=== PATIENT | female | born 1950 | race Caucasian/White ===

== ENCOUNTER → 2016-11-25 | Outpatient (CLI) | payer OTHER ==
[~2016-11-25] MED LIST: AGMUNK; ATOR-22 PO; CHOL100027 PO; CLTP PO; FOLI1TAB7 PO; HYDR0.5T PO; LEVO75TA5 PO; LIFI5DRO OPB; LPTUNK; METH2.5T PO; MULT-506 PO; OMEG10007 PO; RSTOPS OP; SYNUNK
[2016-11-25 14:31] LABS: THYROID STIMULATING HORMONE 0.211 uIu/ml (0.300-4.500)
== END | disposition home or self-care (01) ==
LOC: C.LABBC 12:00
PROVIDERS: ATTEND Nurse Practitioner Family
DX: Z11.59 Encounter for screening for other viral diseases (principal); E03.9 Hypothyroidism, unspecified

== ENCOUNTER → 2017-01-04 | Outpatient (CLI) | payer OTHER ==
[2017-01-04 11:16] LABS: BASO % 1.3 %; BASO ABS # 0.06 K/uL (0-0.2); COMPLETE YES; HEMATOCRIT 40.5 % (37-47); IG% 0.4 %; LYMPH % 36.4 %; LYMPH ABS # 1.71 K/uL (1.2-3.4); MEAN CELL VOLUME 98.5 fL (80-100); MEAN CORPUSCULAR HEMOGLOBIN 33.3 pg (25-34); MEAN CORPUSCULAR HGB CONC 33.8 g/dl (32-36); MEAN PLATELET VOLUME 10.1 fL (7.4-10.4); MONO % 15.5 %; NEUT % 43.4 %; PLATELET COUNT 271 K/uL (130-400); RED BLOOD COUNT 4.11 M/uL (4.2-5.4)
[2017-01-04 11:23] LABS: ALT/SGPT 30 U/L (12-78); BLOOD UREA NITROGEN 15 mg/dl (7-18); CALCIUM 9.4 mg/dl (8.5-10.1); CARBON DIOXIDE 30 mmol/L (21-32); CHLORIDE 105 mmol/L (98-107); CREATININE 0.83 mg/dl (0.60-1.20); GLUCOSE 86 mg/dl (70-99); POTASSIUM 3.8 mmol/L (3.5-5.1); SODIUM 142 mmol/L (136-145)
[2017-01-04 11:26] LABS: ALB/GLOB RATIO 1.2 (0.9-2); ALKALINE PHOSPHATASE 62 U/L (45-117); AST/SGOT 19 U/L (15-37)
== END | disposition home or self-care (01) ==
LOC: C.LABBC 08:43
PROVIDERS: ATTEND Internal Medicine
DX: M35.00 Sjogren syndrome, unspecified (principal); M13.0 Polyarthritis, unspecified

== ENCOUNTER 2017-01-28 21:30 | Emergency (ER) | payer OTHER ==
[~2017-01-28] VITALS: Ht 154.9 cm; Wt 62.8 kg
[~2017-01-28 21:30] MED LIST changes: -ATOR-22 PO; -CHOL100027 PO; -FOLI1TAB7 PO; -LEVO75TA5 PO; -LIFI5DRO OPB; -METH2.5T PO
[2017-01-28 21:41] VITALS: TEMP 36.8; Ht 154.9 cm; Wt 62.8 kg
[2017-01-28] MEDS ORDERED: METH2.5T PO (23:02)
[2017-01-28] MEDS ORDERED: CHOL100027 PO (23:02)
[2017-01-28] MEDS ORDERED: FOLI1TAB7 PO (23:02)
[2017-01-28] MEDS ORDERED: LIFI5DRO OPB (23:02)
[2017-01-28] MEDS ORDERED: ATOR-22 PO (23:02)
[2017-01-28] MEDS ORDERED: LEVO75TA5 PO (23:02)
[2017-01-28 23:39] VITALS: BP 134/93; PULSE 80; O2SAT 94
--- NOTE | 2017-01-30 03:16 | EMERGENCY ROOM VISIT NOTE ---
ED Visit Note First contact with patient: 22:56 Chief Complaint: Anterior neck pain. History of Present Illness: Ms. Gotti is a 66-year-old white female who ambulates into the ED accompanied by her complaining of anterior neck pain. Patient reports approximately 12 hours ago shortly after waking from sleep she developed a soreness sensation over the anterior neck. The prominence of her discomfort is in the submandibular area bilaterally. She goes on to report that she ate breakfast and started working around the house and she did not notice her discomfort but when she sat down for dinner approximately 3 hours ago the discomfort returned. She rates her discomfort 3/10. Her pain is nonradiating. She has not identified any aggravating or alleviating factors related to the pain. She has not taken any medications for pain prior to arrival at the hospital. She denies any associated symptoms including fevers, chills, sweats, skin eruptions , skin color changes, recent trauma, voice changes, difficulty swallowing, neck pain/stiffness, cough, wheezing, shortness of breath, palpitations, orthopnea, dependent edema, previous clots, claudication, cramping, abdominal pain, nausea , vomiting, extremity weakness/numbness/tingling. Review of Systems: As noted above in history of present illness. All body systems were reviewed and found to be negative as noted above. Past Medical History: Luis E's thyroiditis, dyslipidemia. Current Medications: Folate, Lipitor, levothyroxine, vitamins, methotrexate, lifitegrast. Allergies to Medications: Sulfa. Social History: Patient is not employed; she lives with her and feels safe in her home environment; she denies tobacco use. Physical Examination: Vital Signs: Date Time Temp Pulse Resp B/P Pulse Ox O2 Delivery O2 Flow Rate FiO2 01/28/17 23:39 80 18 134/93 94 01/28/17 21:41 36.8 92 18 146/91 96 Room Air GENERAL: 66-year-old female in mild distress due to pain, nontoxic-appearing, afebrile and hemodynamically stable. NEUROLOGICAL: Awake, alert and oriented to person, place and time. Answering questions appropriately and following commands. Normal gait. Good hand eye coordination. No focal motor sensory deficits. SKIN: Warm, dry and pink. No soft tissue eruptions or trauma noted. HEENT: Atraumatic and normocephalic. PERRLA. Sclera white and conjunctiva pink. No drainage from naris. Oral cavity moist and pink. No intraoral trauma. No obvious dental decay. No signs of abscess. Airway is patent. Uvula is midline and no abscesses are seen. Pharynx is nonerythematous or edematous. Speech normal. No lymphadenopathy. No laryngeal tenderness. No carotid bruits. No thyroid enlargement or tenderness. Trachea midline. No jugular venous distention. BACK: No tenderness over the bony cervical and thoracic spine. No CVA tenderness. THORAX: Lungs sounds are clear to auscultation and equal bilaterally with symmetrical chest wall. No wheezing, rales or rhonchi. No crepitus, tenderness , subcutaneous air or deformities noted. HEART: Regular rate and rhythm. No gallops, rubs or murmurs are appreciated. ABDOMEN: Flat, soft and nontender. Positive bowel sounds in all quadrants. No guarding, rigidity or organomegaly. EXTREMITIES: Moves all extremities well on command and with purpose. All distal neurovascular statuses are intact and equal bilaterally. No calf tenderness or cords. ED Course: Patient is assessed as noted above. EKG: Was read by myself and reviewed with Dr. Myers; shows normal sinus rhythm with a ventricular rate of 73 bpm. Signs of left atrial enlargement. No acute ST changes indicating ischemia, injury or infarction. Patient was educated about tonight's findings and instructed on her treatment plan; she verbalizes understanding and agreement with this plan. Clinical Impression: Anterior neck pain. Decision-Making: Initially my differential diagnosis I considered lymphadenopathy, carotid bruit, dental abscess/infection, pharyngitis and other causes. Disposition: Patient discharged home in stable condition accompanied by her ; prior to departure she was reassessed and subjectively reported she was feeling the same. Plan: Patient was encouraged to alternate ibuprofen and acetaminophen as needed for pain/discomfort. Patient was encouraged to follow-up with primary care provider for recheck in 2- 3 days if no better. Patient was encouraged return ED for worsening pain, difficulty speaking, difficulty swallowing, fevers or any new/concerning symptoms.
== END 2017-01-28 23:39 | disposition home or self-care (01) ==
LOC: C.EDB 21:31 → C.EDD 23:39
DX: M54.2 Cervicalgia (principal); E78.5 Hyperlipidemia, unspecified; E06.3 Autoimmune thyroiditis; Z79.899 Other long term (current) drug therapy

== ENCOUNTER → 2017-04-16 | Outpatient (CLI) | payer OTHER ==
[~2017-04-16] MED LIST changes: -AGMUNK; +ATOR-22 PO; +CHOL100027 PO; -CLTP PO; +FOLI1TAB7 PO; -HYDR0.5T PO; +LEVO75TA5 PO; +LIFI5DRO OPB; -LPTUNK; +METH2.5T PO; -MULT-506 PO; -OMEG10007 PO; -RSTOPS OP; -SYNUNK
[2017-04-16 11:03] LABS: BASO % 0.9 %; BASO ABS # 0.04 K/uL (0-0.2); COMPLETE YES; EOS % 2.9 %; IG% 0.2 %; LYMPH % 46.9 %; MEAN CELL VOLUME 98.3 fL (80-100); MEAN CORPUSCULAR HEMOGLOBIN 31.7 pg (25-34); MEAN CORPUSCULAR HGB CONC 32.3 g/dl (32-36); MEAN PLATELET VOLUME 10.4 fL (7.4-10.4); MONO % 16.1 %; PLATELET COUNT 227 K/uL (130-400); RED BLOOD COUNT 4.07 M/uL (4.2-5.4); WHITE BLOOD COUNT 4.48 K/uL (4.8-10.8)
[2017-04-16 11:17] LABS: BLOOD UREA NITROGEN 16 mg/dl (7-18); BUN/CREATININE RATIO 18.4 (10-20); CALCIUM 8.6 mg/dl (8.5-10.1); CARBON DIOXIDE 28 mmol/L (21-32); CHLORIDE 108 mmol/L (98-107); CHOLESTEROL 177 mg/dl (0-200); CHOLESTEROL/HDL RATIO 2.7; CREATININE 0.87 mg/dl (0.60-1.20); GLUCOSE 86 mg/dl (70-99); HDL CHOLESTEROL 65 mg/dl; LDL CHOLESTEROL CALCULATED 86 mg/dl; POTASSIUM 3.8 mmol/L (3.5-5.1); SODIUM 144 mmol/L (136-145); TRIGLYCERIDES 131 mg/dl (0-150); VERY LOW DENSITY LIPOPROT CALC 26 mg/dl
[2017-04-16 11:23] LABS: THYROID STIMULATING HORMONE 0.522 uIu/ml (0.300-4.500)
== END | disposition home or self-care (01) ==
LOC: C.LABBC 08:12
PROVIDERS: ATTEND Nurse Practitioner Family
DX: E78.00 Pure hypercholesterolemia, unspecified (principal); E03.9 Hypothyroidism, unspecified; M13.0 Polyarthritis, unspecified; I73.00 Raynaud's syndrome without gangrene; E53.8 Deficiency of other specified B group vitamins

== ENCOUNTER → 2017-05-27 | Outpatient (CLI) | payer OTHER ==
--- NOTE | 2017-06-04 06:37 | CODING QUERY MEDICAL NECESSITY ---
SUPPORTING DIAGNOSIS NEEDED Eduardo DINH, A supporting diagnosis is required for the test/procedure performed on this patient in order for us to be reimbursed by the patient's insurance. Please provide a supporting diagnosis for the following test/procedure listed below next to the test name along with your signature. *If there is no additional diagnosis for this patient that would support the following test/procedure please document that below next to the test/procedure. Test(s)/Procedure(s) that require a supporting diagnosis: * ([id number]) VITAMIN D ASSAY DIAGNOSIS: DATE OF SERVICE: 05/27/17 Provider Signature: Date: Thank you Sajan Scott [facility] Information Management Once completed, please kindly fax back to [phone] For questions please call [phone]
== END | disposition home or self-care (01) ==
LOC: C.LABBC 15:10
PROVIDERS: ATTEND Nurse Practitioner
DX: R92.2 Inconclusive mammogram (principal); R20.2 Paresthesia of skin; M79.601 Pain in right arm; M79.602 Pain in left arm

== ENCOUNTER → 2017-06-03 | Outpatient (CLI) | payer OTHER ==
--- NOTE | 2017-06-03 11:14 | DIAGNOSTIC IMAGING REPORT ---
LEFT UPPER EXTREMITY VENOUS DOPPLER HISTORY: PARESTHESIA AND PAIN BILATERAL UPPER EXT COMPARISON STUDY: None. FINDINGS: The left internal jugular vein is patent. There is normal flow within the left subclavian vein. There is normal flow and compressibility within the left axillary, basilic, brachial, radial, ulnar, and visualized cephalic veins. IMPRESSION: No DVT within the left upper extremity. Electronically signed by: Jatinder Jonas M.D. 06/03/2017 11:13 AM Dictated Date/Time: 06/03/2017 11:12 AM
== END | disposition home or self-care (01) ==
LOC: C.ULTRBC 10:26
PROVIDERS: ATTEND Nurse Practitioner
DX: R20.9 Unspecified disturbances of skin sensation (principal); M79.601 Pain in right arm; M79.602 Pain in left arm

== ENCOUNTER → 2017-06-25 | Outpatient (CLI) | payer OTHER ==
[2017-06-25 13:51] LABS: C-REACTIVE PROTEIN < 0.29 mg/dl (0-0.29); MAGNESIUM 2.1 mg/dl (1.8-2.4)
[2017-06-25 13:58] LABS: LYME DISEASE AB IGG NEG (NEG)
[2017-06-25 13:59] LABS: LYME DISEASE AB IGM NEG (NEG)
== END | disposition home or self-care (01) ==
LOC: C.LABBC 10:05
PROVIDERS: ATTEND Nurse Practitioner Family
DX: R20.2 Paresthesia of skin (principal)

== ENCOUNTER → 2017-07-21 | Outpatient (CLI) | payer OTHER ==
--- NOTE | 2017-07-21 13:10 | MAMMOGRAPHY REPORT ---
BILATERAL DIGITAL SCREENING MAMMOGRAM WITH CAD: 07/21/2017 CLINICAL HISTORY: Routine screening. Patient has no complaints. TECHNIQUE: Bilateral CC and MLO views were obtained. Current study was also evaluated with a Compute r Aided Detection (CAD) system. COMPARISON: Comparison is made to exams dated: 07/19/2016 mammogram, 07/25/2014 ultrasound, 07/17/2015 mammogram, 07/25/2014 mammogram, 07/14/2014 mammogram, and 07/09/2013 mammogram - [facility] enter. BREAST COMPOSITION: The tissue of both breasts is almost entirely fatty. FINDINGS: There are numerous benign rim calcifications scattered in both breasts. No suspicious mass , architectural distortion or cluster of microcalcifications is seen. IMPRESSION: ACR BI-RADS CATEGORY 1: NEGATIVE There is no mammographic evidence of malignancy. A 1 year screening mammogram is recommended. The pa tient will receive written notification of the results. Approximately 10% of breast cancers are not detected with mammography. A negative mammographic report should not delay biopsy if a clinically suggestive mass is present. Yessenia Gomez M.D. ay/:07/21/2017 12:47:16 Security Police Officer: [place](R)(M), [facility] letter sent: Normal 1/2 BI-RADS Code: ACR BI-RADS Category 1: Negative
== END | disposition home or self-care (01) ==
LOC: C.MAMM 09:53
PROVIDERS: ATTEND Obstetrics & Gynecology
DX: Z12.31 Encounter for screening mammogram for malignant neoplasm of breast (principal)

== ENCOUNTER → 2017-08-12 | Outpatient (CLI) | payer OTHER ==
[2017-08-12 13:54] LABS: BASO % 0.7 %; BASO ABS # 0.04 K/uL (0-0.2); HEMATOCRIT 39.5 % (37-47); IG% 0.3 %; LYMPH % 20.2 %; LYMPH ABS # 1.24 K/uL (1.2-3.4); MEAN CORPUSCULAR HEMOGLOBIN 33.5 pg (25-34); MEAN CORPUSCULAR HGB CONC 34.2 g/dl (32-36); MEAN PLATELET VOLUME 10.3 fL (7.4-10.4); MONO % 7.8 %; PLATELET COUNT 243 K/uL (130-400); RED BLOOD COUNT 4.03 M/uL (4.2-5.4); WHITE BLOOD COUNT 6.14 K/uL (4.8-10.8)
[2017-08-12 14:16] LABS: BLOOD UREA NITROGEN 17 mg/dl (7-18); BUN/CREATININE RATIO 19.7 (10-20); CALCIUM 9.1 mg/dl (8.5-10.1); CARBON DIOXIDE 26 mmol/L (21-32); CHLORIDE 108 mmol/L (98-107); CREATININE 0.88 mg/dl (0.60-1.20); GLUCOSE 92 mg/dl (70-99); POTASSIUM 4.2 mmol/L (3.5-5.1); SODIUM 141 mmol/L (136-145)
[2017-08-12 14:18] LABS: ALB/GLOB RATIO 1.3 (0.9-2); ALKALINE PHOSPHATASE 57 U/L (45-117); ALT/SGPT 38 U/L (12-78); AST/SGOT 19 U/L (15-37)
[2017-08-12 15:18] LABS: COMPLETE YES
== END | disposition home or self-care (01) ==
LOC: C.LABBC 11:29
PROVIDERS: ATTEND Internal Medicine
DX: M35.01 Sjogren syndrome with keratoconjunctivitis (principal); Z79.899 Other long term (current) drug therapy; M13.0 Polyarthritis, unspecified

== ENCOUNTER → 2017-10-11 | Outpatient (CLI) | payer OTHER ==
[~2017-10-11] MED LIST changes: -FOLI1TAB7 PO; +FOLI1TAB8 PO
[2017-10-11 10:38] LABS: BASO ABS # 0.05 K/uL (0-0.2); COMPLETE YES; EOS % 2.6 %; HEMATOCRIT 41.3 % (37-47); IG% 0.4 %; LYMPH % 43.6 %; LYMPH ABS # 2.22 K/uL (1.2-3.4); MEAN CORPUSCULAR HEMOGLOBIN 33.3 pg (25-34); MEAN CORPUSCULAR HGB CONC 33.7 g/dl (32-36); MEAN PLATELET VOLUME 10.3 fL (7.4-10.4); MONO % 14.5 %; NEUT % 37.9 %; PLATELET COUNT 247 K/uL (130-400); RED BLOOD COUNT 4.17 M/uL (4.2-5.4); WHITE BLOOD COUNT 5.09 K/uL (4.8-10.8)
[2017-10-11 11:19] LABS: ALT/SGPT 34 U/L (12-78); AST/SGOT 16 U/L (15-37); BLOOD UREA NITROGEN 15 mg/dl (7-18); BUN/CREATININE RATIO 17.6 (10-20); CARBON DIOXIDE 29 mmol/L (21-32); CHLORIDE 106 mmol/L (98-107); CREATININE 0.88 mg/dl (0.60-1.20); GLUCOSE 84 mg/dl (70-99); POTASSIUM 3.5 mmol/L (3.5-5.1); SODIUM 140 mmol/L (136-145)
[2017-10-11 11:30] LABS: ALB/GLOB RATIO 1.2 (0.9-2); ALKALINE PHOSPHATASE 57 U/L (45-117); CHOLESTEROL 169 mg/dl (0-200); CHOLESTEROL/HDL RATIO 2.3; HDL CHOLESTEROL 75 mg/dl; LDL CHOLESTEROL CALCULATED 74 mg/dl; THYROID STIMULATING HORMONE 0.447 uIu/ml (0.300-4.500); TRIGLYCERIDES 99 mg/dl (0-150); VERY LOW DENSITY LIPOPROT CALC 20 mg/dl
== END | disposition home or self-care (01) ==
LOC: C.LABBC 08:16
PROVIDERS: ATTEND Nurse Practitioner Family
DX: E03.9 Hypothyroidism, unspecified (principal); E78.00 Pure hypercholesterolemia, unspecified; M13.0 Polyarthritis, unspecified; I73.00 Raynaud's syndrome without gangrene

== ENCOUNTER → 2017-11-01 | Outpatient (CLI) | payer OTHER ==
--- NOTE | 2017-11-01 11:28 | DIAGNOSTIC IMAGING REPORT ---
L-SPINE MIN 4 VIEWS ROUTINE CLINICAL HISTORY: 66 years-old Female presenting with HIP PAIN, bilateral pain for one year, no known injury. TECHNIQUE: Frontal, bilateral oblique, lateral, and coned in lateral views lumbar spine were obtained. COMPARISON: 01/31/2012. FINDINGS: Levoscoliotic curvature of the lumbar spine centered at L3. Evaluation of the lumbar spine on lateral view is limited by the presence of scoliosis. Vertebral bodies maintain normal heights and grossly normal alignment. Intervertebral disc height loss multiple levels may in part be projectional due to curvature. No gross evidence of osseous neural foraminal narrowing. Facet arthropathy suggested in the lower lumbar spine. No compression deformity. Moderate stool burden in the right colon. No gross pneumoperitoneum. Lung bases clear. IMPRESSION: 1. Evaluation of the spine by radiograph is limited due to scoliotic curvature. 2. Increased with levoscoliosis since the prior exam. 3. No gross evidence of acute osseous injury. Electronically signed by: Bhavin Holloway M.D. 11/01/2017 11:27 AM Dictated Date/Time: 11/01/2017 11:24 AM
== END | disposition home or self-care (01) ==
LOC: C.RADBC 11:01
PROVIDERS: ATTEND Nurse Practitioner Family
DX: M25.559 Pain in unspecified hip (principal)

== ENCOUNTER → 2017-11-05 | Outpatient (CLI) | payer OTHER ==
--- NOTE | 2017-11-05 13:01 | DIAGNOSTIC IMAGING REPORT ---
PELVIS/BILATERAL HIP 2 VIEWS HISTORY: 66 years-old Female HIP PAIN chronic bilateral hip pain without known injury or trauma COMPARISON: Pelvis and hip radiographs 03/06/2015 TECHNIQUE: AP view of the pelvis with 2 views of the bilateral hips FINDINGS: Intervertebral disc space narrowing with facet arthropathy noted within the imaged lower lumbar spine. No pelvic ring fracture identified. There are mild degenerative changes of the bilateral femoral acetabular joints. No acute fracture or subluxation identified. Vascular calcifications are seen. Calcifications of the pelvis suggest phleboliths. IMPRESSION: 1. No acute fracture or subluxation. 2. Mild degenerative changes of the bilateral hips. The above report was generated using voice recognition software. It may contain grammatical, syntax or spelling errors. Electronically signed by: Jorge Garg M.D. 11/05/2017 1:00 PM Dictated Date/Time: 11/05/2017 12:58 PM
== END | disposition home or self-care (01) ==
LOC: C.RADBC 12:36
PROVIDERS: ATTEND Nurse Practitioner Family
DX: M25.559 Pain in unspecified hip (principal)

== ENCOUNTER → 2017-11-27 | Outpatient (CLI) | payer OTHER | END | disposition home or self-care (01) | LOC: C.MAMM 08:05 | PROVIDERS: ATTEND Nurse Practitioner Family | DX: Z13.820 Encounter for screening for osteoporosis (principal); M85.852 Other specified disorders of bone density and structure, left thigh ==

== ENCOUNTER → 2017-12-20 | Outpatient (CLI) | payer OTHER ==
[2017-12-20 10:23] LABS: BASO % 0.9 %; BASO ABS # 0.05 K/uL (0-0.2); EOS % 2.2 %; EOS ABS # 0.13 K/uL (0-0.5); HEMATOCRIT 40.9 % (37-47); HEMOGLOBIN 13.8 g/dL (12.0-16.0); IG# 0.02 K/uL (0.00-0.02); LYMPH ABS # 2.22 K/uL (1.2-3.4); MEAN CORPUSCULAR HEMOGLOBIN 33.4 pg (25-34); MEAN CORPUSCULAR HGB CONC 33.7 g/dl (32-36); MEAN PLATELET VOLUME 10.4 fL (7.4-10.4); MONO % 14.9 %; MONO ABS # 0.87 K/uL (0.11-0.59); NEUT % 43.7 %; NEUT ABS # 2.55 K/uL (1.4-6.5); PLATELET COUNT 257 K/uL (130-400); RED CELL DISTRIBUTION WIDTH CV 13.7 % (11.5-14.5); RED CELL DISTRIBUTION WIDTH SD 49.1 fL (36.4-46.3); WHITE BLOOD COUNT 5.84 K/uL (4.8-10.8)
[2017-12-20 10:41] LABS: ALT/SGPT 31 U/L (12-78); AST/SGOT 16 U/L (15-37); BLOOD UREA NITROGEN 19 mg/dl (7-18); CALCIUM 9.2 mg/dl (8.5-10.1); CARBON DIOXIDE 27 mmol/L (21-32); CREATININE 0.88 mg/dl (0.60-1.20); GLUCOSE 83 mg/dl (70-99); POTASSIUM 3.9 mmol/L (3.5-5.1); SODIUM 144 mmol/L (136-145)
[2017-12-20 10:43] LABS: ALKALINE PHOSPHATASE 60 U/L (45-117); TOTAL PROTEIN 7.2 gm/dl (6.4-8.2)
== END | disposition home or self-care (01) ==
LOC: C.LAB1850 08:14
PROVIDERS: ATTEND Internal Medicine
DX: M13.0 Polyarthritis, unspecified (principal); Z79.899 Other long term (current) drug therapy

== ENCOUNTER 2025-07-08 08:33 | Inpatient (IN) ==
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
--- NOTE | 2025-07-08 09:21 | XRay Report ---
XR chest 1V portable CLINICAL HISTORY: ams COMPARISON STUDY: 08/26/2021 FINDINGS: Single view portable chest is unchanged demonstrating no acute cardiopulmonary process. No airspace opacity or pleural effusion. The heart and pulmonary vascularity are unremarkable. IMPRESSION: Negative portable chest ACT 112: Negative or not required by law. Electronically signed by: Anita Mitchell M.D. 07/08/2025 9:19 AM
[2025-07-08 09:27] LABS: Appearance Urine Clear (Clear); Glucose Urine UA Negative (Negative)
[2025-07-08] MEDS: SODIUM CHLORIDE 0.9% 500 ML IV SCH (09:33)
[2025-07-08 09:45] LABS: Hematocrit (blood only) 40.3 % (37.0-47.0); Hemoglobin 13.7 g/dl (12.0-16.0); Immature Granulocytes # (auto) 0.04 K/uL (0.01-0.20); Immature Granulocytes % (auto) 0.8 %; Mean Corpuscular Hemoglobin 30.9 pg (25.0-34.0); Mean Corpuscular Volume 91.0 fL (80.0-100.0); Platelet Count 273 K/uL (130-400); RDW Standard Deviation 43.3 fL (36.4-46.3); Red Blood Count 4.43 M/uL (4.20-5.40); White Blood Count 5.10 K/ul (4.8-10.8)
--- NOTE | 2025-07-08 09:50 | CT Scan Report ---
CT head/brain wo con CLINICAL HISTORY: ams. TECHNIQUE: Multiple axial CT images of the head were obtained without contrast. A dose lowering tech nique was utilized adhering to the principles of ALARA. CT DOSE: 625.8 mGy.cm COMPARISON: 08/20/2024 FINDINGS: CT findings are stable. There is no intra-axial or extra-axial fluid collection, hemorrhage , or mass. Global atrophy and presumptive small vessel insufficiency changes are redemonstrated. Ther e is no midline shift. The calvarium is intact. IMPRESSION: Stable exam; no acute findings. ACT 112: Negative or not required by law. The above report was generated using voice recognition software. It may contain grammatical, syntax o r spelling errors. Electronically signed by: Anita Mitchell M.D. 07/08/2025 9:47 AM
[2025-07-08 10:02] LABS: Alanine Aminotransferase 10.0 U/L (7-52); Albumin Globulin Ratio 1.5 (0.9-2); Alkaline Phosphatase 41.0 U/L (34-104); Anion Gap 7.0 (3-11); Bilirubin,Total 0.7 mg/dl (0.2-1.0); Blood Urea Nitrogen 24.0 mg/dl (6-23); Calcium 9.9 mg/dl (8.6-10.3); Carbon Dioxide 25.0 mmol/L (21-32); Chloride 107.0 mmol/L (98-107); Creatine Kinase 121.0 U/L (26-192); Creatinine Clr Calc Pharmacy 34.0 ml/min; Globulin 2.9 gm/dl (2.5-4.0); Glucose 92.0 mg/dl (70-99(Fasting)); Magnesium 2.2 mg/dl (1.7-2.4); Potassium 4.0 mmol/L (3.5-5.1); Sodium 139.0 mmol/L (136-145); Total Protein 7.2 gm/dl (6.0-8.3)
[2025-07-08 10:17] LABS: Thyroid Stimulating Hormone 3.646 uIu/ml (0.300-4.500)
--- NOTE | 2025-07-08 11:54 | History & Physical Report ---
Date of Service July 08, 2025 Assessment & Plan (1) Mixed dementia: (2) Hypothyroidism: (3) Sjogrens syndrome: Plan 74 y/o woman with longstanding mixed dementia, seronegative arthritis and Sjogren's on low dose prednisone, who was brought in by her with progressive confusion and episodes of agitation / combativeness. # AMS - slow progression consistent with natural history of Alzheimer's dementia, rather than acute issue -Thorough ED workup negative for acute issues as detailed above: CBC/CMP, trop, TSH, COVID, UA, head CT, CXR, EKG all unremarkable/negative. Afebrile, not tachycardic, not hypoxic, mildly hypertensive -possible mild dehydration and given 1L NS in ED -check B12 -medication side effects (namenda, rivastigmine) which could be aggravating the situation - hold these -probable depression and anxiety - see below # Alzheimer's dementia previous (fairly remote) neuropsychological evaluation had suggested a mixed dementia, and past MRI of the brain with chronic small vessel disease and bilateral hippocampal atrophy. Reviewed previous neurology clinic notes including Dr. Callahan's last note - he felt more of an Alzheimer's picture and that fits with the progressive decline At baseline incontinence bowel/bladder, cannot complete ADLs except can dress self 50% of the time, increasing behavioral problems making it difficult for her to care for her -on rivastigmine patch and namenda as outpatient - probably stop because risk of side effects exceeds benefit at this point -olanzapine PRN if needed for significant agitation -discussed natural history of dementia with her # Mood disorder - based on 's description she probably has depression and possibly anxiety which can contribute to cognitive decline and behavioral problems -start citalopram 10 mg daily with goal of 20 mg daily -QTC is not prolonged # hypothyroidism - TSH normal, continue levothyroxine # Sjogren's and seronegative arthritis -continue low dose prednisone 5 mg daily DVT ppx- enoxaparin Dispo- probably needs placement unless big improvement with above medication changes, consult care coord I spoke with her by phone today. He does not know her wishes regarding code status. He does not know what he would want. Full code at this time and deserves further discussion History of Present Illness Chief Complaint: Worsening mental status and agitation Primary Care Provider: Jeff Munoz, III, TELEHEALTH CASE MANAGER 74 y/o with longstanding mixed dementia (onset prior to 2020), seronegative arthritis and Sjogren's on low dose prednisone, who was brought in by her with increasing confusion, combativeness. She can not provide any history because of severe dementia. History from ED physician and from her , by telephone, which was somewhat limited by soft speech and static on telephone line. She has had progressive slow decline over time, especially past weeks to months. She no longer cooks and he does not trust her with a knife because of inappropriate safety awareness. She is able to dress herself about 50% of the time. There have been increased episodes of agitation / combativeness recently where she will yell at him, argue, even throw objects at him. He relates a story where they were out for dinner and she had put all her rings in her mouth with tacos. She also wants to put two shoes on at the same time and agitated when he tries to redirect her. Recently they have been exploring moving to a [place] [facility] home and she has been very sad about that, saying she'd rather and crying. He feels she does have depressed mood. Followed by [facility] neurology, on rivastigmine patch and namenda Multiple ED visits recently with complaints about urinary incontinence. No UTIs. noted to be slow to respond verbally but not confused. They live in a house in [place] and have two adult children that live in [facility] and [place]. Allergies Allergy/AdvReac Type Severity Reaction Status Date / Time Sulfa (Sulfonamide Allergy Severe FACIAL Verified 06/22/25 10:57 Antibiotics) SWELLING vancomycin Allergy Unknown Unknown Verified 06/22/25 10:57 Uzjucmn-KGQ-TqN Reductase AdvReac Intermediate Confusion Verified 06/22/25 10:57 Inhibitor [Yuocmiq-Aop-Zod Reductase Inhibitor] Home Medications Medication Instructions Recorded Confirmed Type cholecalciferol (vitamin D3) 25 3,000 unit PO QDD 07/12/18 07/08/25 History mcg (1,000 unit) capsule (Vitamin D3) mecobalamin (vitamin B12) 1,000 1,000 mcg PO DAILY 09/19/23 07/08/25 History mcg chewable tablet rivastigmine 9.5 mg/24 hour 9.5 mg transdermal QAM 90 days #3 06/24/24 07/08/25 Rx transdermal patch Boxes prednisone 5 mg tablet 5 mg PO QAM #90 tabs 08/02/24 07/08/25 Rx fenofibrate 150 mg capsule 150 mg PO QAM #90 caps 08/03/24 07/08/25 Rx memantine 10 mg tablet 10 mg PO BID 90 days #180 tabs 03/29/25 07/08/25 Rx terbinafine HCl 250 mg tablet 250 mg PO DAILY 12 weeks #84 tabs 04/20/25 07/08/25 Rx levothyroxine 50 mcg tablet 50 mcg PO DAILYBB 07/08/25 07/08/25 History omega 7-ahl-umh-fish oil 910 1 cap PO QDD 07/08/25 07/08/25 History mg-1,400 mg capsule ([place]-3 Fish Oil) Past Med/Surg History Problem List Dementia (Acute) Urinary incontinence (Chronic) Fecal incontinence (Chronic) Mixed dementia (Chronic) Pure hypercholesterolemia (Chronic) Raynauds phenomenon (Chronic) Hypothyroidism (Chronic) Rosacea Prediabetes (Chronic) Alzheimer's dementia (Chronic) Seronegative polyarthritis Sjogrens syndrome (Chronic) Medical History Osteoporosis Osteoarthritis Mild dementia Hyperlipidemia Hypothyroidism Surgical History S/P cataract surgery bilateral History of hammertoe correction History of colonoscopy History of wisdom tooth extraction History of tubal ligation Family History Aunt Breast cancer Mother Coronary heart disease Myocardial infarction Father Coronary heart disease Other No family history of adverse response to anesthesia Denies family history of Ovarian cancer Prostate cancer Colorectal cancer Social History Smoking Status: Never smoker Second Hand Exposure: No; Do You Dip or Chew Tobacco: No; Hx Alcohol Use: No Hx Substance Use: No Preferred Language: Maltese Communication Ability: Effective Visual Impairment: No Limitations Hearing Ability: Normal Full Stack Web Developer Required: No Beliefs That Will Affect Care: None marital status: Current Living Situation: Spouse current occupational status: retired How many Children do You have: 2 Feels Safe at Home: Yes Safety Concerns: Feels Safe At This Time Childhood Exposure to Second-Hand Smoke: Yes Diet: regular caffeine: Yes during the past year weight has: remained stable Dental Care, Regularly: Yes Physical Activity Frequency: 1-2 Times per Week Seatbelt Use: always Sunscreen Use: Yes Assistive Devices: Glasses Review of Systems 2 Review of Systems: Unobtainable due to cognitive status Physical Exam 2 Physical Exam: Last 24h vitals reviewed GEN: initially calm in ED sitting on stretcher but became much more activated during conversation though not frankly agitated. Frail appearing HEENT: pupils equal, sclerae anicteric, moist MM RESP: normal WOB, CTAB CV: reg no mrg ABD: soft/nt/nd +BT : no contreras SKIN: warm and dry, no generalized rashes NEURO: AOx person only. Cannot describe why she is here or where we are. continuous picking at Face symmetric, speech normal, moves 4 ext spontaneously and equally Results & Data Results & Data Vital Signs (Past 12 Hours) Vital Signs Temp Pulse Resp BP Pulse Ox O2 Del Method 07/08/25 10:34 164/81 H 07/08/25 10:18 58 L 19 100 Room Air 07/08/25 09:10 61 20 98 Room Air 07/08/25 09:03 73 21 96 Room Air 07/08/25 08:55 66 07/08/25 08:51 179/87 H 07/08/25 08:35 36.4 C L 68 20 155/81 H 99 Room Air Laboratory Results 07/08/25 09:25 07/08/25 09:25 LFT normal Tn <5 UA negative COVID negative TSH 3.6 CT head - no acute changes, generalized atrophy CXR - personally reviewed film which is clear EKG - personally reviewed EKG tracing - normal PG Care Time/CCT Total # of Minutes Spent Total Time Spent with Patient: Total time spent is greater than 50% in coordination of care (as documented) at patient's floor/unit and/or counseling patient: Coding Level of Care Code 90860 INT INP/OBS CARE 3/75MIN Diagnoses Mixed dementia G30.9; F01.50; F02.80 Acquired hypothyroidism E03.9 Hypothyroidism type: acquired Sjogren's syndrome, with unspecified organ involvement M35.00 Sjogren organ or system involvement: unspecified organ involvement (2) Hypothyroidism Hypothyroidism type: acquired Qualified Code(s): E03.9 - Hypothyroidism, unspecified (3) Sjogrens syndrome Sjogren organ or system involvement: unspecified organ involvement Qualified Code(s): M35.00 - Sjogren syndrome, unspecified
[2025-07-08] MEDS ORDERED: ACETAMINOPHEN 325 MG TAB PO PRN (15:28)
[2025-07-08] MEDS ORDERED: MAGNESIUM HYDROXIDE SUSP 30 ML UDC PO PRN (15:28)
[2025-07-08] MEDS ORDERED: ONDANSETRON INJ 2 MG/ML 2 ML VIAL IV PRN (15:28)
[2025-07-08] MEDS ORDERED: POLYETHYLENE (MIRALAX) 17 GM PACK PO PRN (15:28)
[2025-07-08] MEDS ORDERED: ALUMINUM/MAGNESIUM SUSP 30 ML UDC PO PRN (15:28)
[2025-07-08] MEDS: ENOXAPARIN INJ 40 MG/0.4 ML SYR SQ SCH (17:33)
--- NOTE | 2025-07-08 17:48 | Electrocardiogram Report ---
Test Reason : Blood Pressure : */* mmHG Vent. Rate : 61 BPM Atrial Rate : 61 BPM P-R Int : 202 ms QRS Dur : 82 ms QT Int : 446 ms P-R-T Axes : 91 7 32 degrees QTcB Int : 448 ms Normal sinus rhythm 1st degree AV block Normal ECG When compared with ECG of 19-May-2025 12:33, Nonspecific T wave abnormality now evident in Lateral leads Confirmed by Pramod Saldana ([id number]) on 07/08/2025 5:48:24 PM Referred By: REFERRED SELF Confirmed By: Pramod Saldana
[2025-07-08] MEDS: CHOLECALCIFEROL 25 MCG (1000 UNITS) TAB PO SCH (18:07)
[2025-07-08] MEDS: MELATONIN 3 MG TAB PO PRN (20:04)
[2025-07-09] MEDS: LEVOTHYROXINE SODIUM 50 MCG TABLET PO SCH (06:15)
[2025-07-09] MEDS: CYANOCOBALAMIN (B-12) 500 MCG TABLET PO SCH (08:32)
[2025-07-09] MEDS: FENOFIBRATE NANOCRYSTALLIZED 145 MG TABLET PO SCH (08:32)
--- NOTE | 2025-07-09 18:14 | Hospitalist Progress Note ---
Date of Service July 09, 2025 Assessment & Plan (1) Mixed dementia: (2) Hypothyroidism: (3) Sjogrens syndrome: Plan 74 y/o woman with longstanding mixed dementia, seronegative arthritis and Sjogren's on low dose prednisone, who was brought in by her with progressive confusion and episodes of agitation / combativeness. # AMS - slow progression consistent with natural history of Alzheimer's dementia, rather than acute issue -Thorough ED workup negative for acute issues as detailed above: CBC/CMP, trop, COVID, UA, head CT, CXR, EKG all unremarkable/negative. Afebrile, not tachycardic, not hypoxic, mildly hypertensive -possible mild dehydration and given 1L NS in ED -B12 >1000 and TSH wnl -medication side effects (namenda, rivastigmine) which could be aggravating the agitation/combativeness - hold these -probable depression and anxiety - see below # Alzheimer's dementia previous (fairly remote, prior to 2020) neuropsychological evaluation had suggested a mixed dementia, and past MRI of the brain with chronic small vessel disease and bilateral hippocampal atrophy. Reviewed previous neurology clinic notes including Dr. Callahan's last note - he felt more of an Alzheimer's picture and that fits with the progressive decline At baseline incontinence bowel/bladder, cannot complete ADLs except can dress self 50% of the time, increasing behavioral problems making it difficult for her to care for her -on rivastigmine patch and namenda as outpatient - probably stop because risk of side effects exceeds benefit at this point -olanzapine PRN if needed for significant agitation -discussed natural history of dementia with her , son # Mood disorder - based on 's description she probably has depression and possibly anxiety which can contribute to cognitive decline and behavioral problems -start citalopram 10 mg daily with goal of 20 mg daily, tolerating thus far -QTC is not prolonged # hypothyroidism - TSH normal, continue levothyroxine # Sjogren's and seronegative arthritis -continue low dose prednisone 5 mg daily DVT ppx- enoxaparin Dispo- reviewed care coord note she met with and son, exploring [facility] and other options for them Full code at this time and deserves further discussion Admission and Anticipated Discharge Date Admission Date: July 08, 2025 Subjective Has not been too agitated but keeps getting up and walking, walks steady though. Doing ok with family in the room Physical Exam Physical Exam: Last 24h vitals reviewed GEN: calm and pretty cooperative, got up and walked into when I was talking to her family outside HEENT: pupils equal, sclerae anicteric, moist MM RESP: normal WOB, CTAB CV: reg no mrg ABD: soft/nt/nd +BT : no contreras SKIN: warm and dry, no generalized rashes NEURO: AOx person and family only. Confused and extremely poor short term memory. Face symmetric, speech normal, moves 4 ext spontaneously and equally Results & Data Results & Data Vital Signs (Past 12 Hours) Vital Signs Temp Pulse Resp BP Pulse Ox O2 Del Method 07/09/25 14:37 36.7 C 96 H 18 139/78 97 Room Air 07/09/25 07:30 36.5 C 88 18 158/90 H 98 Room Air Laboratory Results B12 >1000 PG Care Time/CCT Total # of Minutes Spent Total Time Spent with Patient: Total time spent is greater than 50% in coordination of care (as documented) at patient's floor/unit and/or counseling patient: Coding Level of Care Code 16693 SUB INP/OBS CARE 2/35MIN Diagnoses Mixed dementia G30.9; F01.50; F02.80 Acquired hypothyroidism E03.9 Hypothyroidism type: acquired Sjogren's syndrome, with unspecified organ involvement M35.00 Sjogren organ or system involvement: unspecified organ involvement (2) Hypothyroidism Hypothyroidism type: acquired Qualified Code(s): E03.9 - Hypothyroidism, unspecified (3) Sjogrens syndrome Sjogren organ or system involvement: unspecified organ involvement Qualified Code(s): M35.00 - Sjogren syndrome, unspecified
--- NOTE | 2025-07-10 16:38 | Hospitalist Progress Note ---
Date of Service July 10, 2025 Assessment & Plan (1) Mixed dementia: (2) Hypothyroidism: (3) Sjogrens syndrome: Plan 74 y/o woman with longstanding mixed dementia, seronegative arthritis and Sjogren's on low dose prednisone, who was brought in by her with progressive confusion and episodes of agitation / combativeness. # AMS - slow progression consistent with natural history of Alzheimer's dementia, rather than acute issue -Thorough ED workup negative for acute issues as detailed above: CBC/CMP, trop, COVID, UA, head CT, CXR, EKG all unremarkable/negative. Afebrile, not tachycardic, not hypoxic, mildly hypertensive -possible mild dehydration and given 1L NS in ED -B12 >1000 and TSH wnl -medication side effects (namenda, rivastigmine) which could be aggravating the agitation/combativeness - hold these -probable depression and anxiety - see below # Alzheimer's dementia previous (fairly remote, prior to 2020) neuropsychological evaluation had suggested a mixed dementia, and past MRI of the brain with chronic small vessel disease and bilateral hippocampal atrophy. Reviewed previous neurology clinic notes including Dr. Callahan's last note - he felt more of an Alzheimer's picture and that fits with the progressive decline At baseline incontinence bowel/bladder, cannot complete ADLs except can dress self 50% of the time, increasing behavioral problems making it difficult for her to care for her -on rivastigmine patch and namenda as outpatient - probably stop because risk of side effects exceeds benefit at this point -olanzapine PRN if needed for significant agitation - responded well to 5 mg ODT last night. Monitor, may benefit from scheduled evening dose -discussed natural history of dementia with her , son # Mood disorder - based on 's description she probably has depression and possibly anxiety which can contribute to cognitive decline and behavioral problems -start citalopram 10 mg daily with goal of 20 mg daily, tolerating thus far -QTC is not prolonged # hypothyroidism - TSH normal, continue levothyroxine # Sjogren's and seronegative arthritis -continue low dose prednisone 5 mg daily DVT ppx- enoxaparin Dispo- reviewed care coord note she met with and son, exploring [facility] and other options for them I updated son Willis and her in the room today Full code at this time and deserves further discussion Admission and Anticipated Discharge Date Admission Date: July 08, 2025 Subjective She has no complaints, pleasantly confused History obtained from RN - agitation last night around 7pm responded well to olanzapine odt 5 mg and she slept well last night. Up for bfast and lunch today Physical Exam Physical Exam: Last 24h vitals reviewed GEN:calm and sitting on end of bed, in room exam unchanged today: HEENT: pupils equal, sclerae anicteric, moist MM RESP: normal WOB, CTAB CV: reg no mrg ABD: soft/nt/nd +BT : no contreras SKIN: warm and dry, no generalized rashes NEURO: AOx person and family only. Confused and extremely poor short term memory. Face symmetric, speech normal, moves 4 ext spontaneously and equally Results & Data Results & Data Vital Signs (Past 12 Hours) Vital Signs Temp Pulse Resp BP Pulse Ox O2 Del Method 07/10/25 14:21 36.6 C 80 18 125/81 96 Room Air 07/10/25 07:31 36.6 C 74 18 157/87 H 98 Room Air PG Care Time/CCT Total # of Minutes Spent Total Time Spent with Patient: Total time spent is greater than 50% in coordination of care (as documented) at patient's floor/unit and/or counseling patient: Coding Level of Care Code 15755 SUB INP/OBS CARE 2/35MIN Diagnoses Mixed dementia G30.9; F01.50; F02.80 Acquired hypothyroidism E03.9 Hypothyroidism type: acquired Sjogren's syndrome, with unspecified organ involvement M35.00 Sjogren organ or system involvement: unspecified organ involvement (2) Hypothyroidism Hypothyroidism type: acquired Qualified Code(s): E03.9 - Hypothyroidism, unspecified (3) Sjogrens syndrome Sjogren organ or system involvement: unspecified organ involvement Qualified Code(s): M35.00 - Sjogren syndrome, unspecified
[2025-07-11 07:33] VITALS: RESP 18
--- NOTE | 2025-07-11 17:16 | Hospitalist Progress Note ---
Date of Service July 11, 2025 Assessment & Plan (1) Mixed dementia: (2) Hypothyroidism: (3) Sjogrens syndrome: Plan 74 y/o woman with longstanding mixed dementia, seronegative arthritis and Sjogren's on low dose prednisone, who was brought in by her with progressive confusion and episodes of agitation / combativeness. # AMS - slow progression consistent with natural history of Alzheimer's dementia, rather than acute issue -Thorough ED workup negative for acute issues as detailed above: CBC/CMP, trop, COVID, UA, head CT, CXR, EKG all unremarkable/negative. Afebrile, not tachycardic, not hypoxic, mildly hypertensive -possible mild dehydration and given 1L NS in ED -B12 >1000 and TSH wnl -medication side effects (namenda, rivastigmine) which could be aggravating the agitation/combativeness - hold these -probable depression and anxiety - see below # Alzheimer's dementia previous (fairly remote, prior to 2020) neuropsychological evaluation had suggested a mixed dementia, and past MRI of the brain with chronic small vessel disease and bilateral hippocampal atrophy. Reviewed previous neurology clinic notes including Dr. Callahan's last note - he felt more of an Alzheimer's picture and that fits with the progressive decline At baseline incontinence bowel/bladder, cannot complete ADLs except can dress self 50% of the time, increasing behavioral problems making it difficult for her to care for her -on rivastigmine patch and namenda as outpatient - probably stop because risk of side effects exceeds benefit at this point -discussed natural history of dementia with her , son -ordered olanzapine 5 mg ODT HS scheduled - has been very effective for recurring pattern of evening agitation. May give early. Discussed risks:benefits with her son # Mood disorder - based on 's description she probably has depression and possibly anxiety which can contribute to cognitive decline and behavioral problems -start citalopram 10 mg daily with goal of 20 mg daily, tolerating thus far. Eval for dose increase in roughly 10 days -QTC is not prolonged # hypothyroidism - TSH normal, continue levothyroxine # Sjogren's and seronegative arthritis -continue low dose prednisone 5 mg daily DVT ppx- enoxaparin Discussed with RONN Olson dc to rehab at [facility] tomorrow then to [facility] I updated son Willis and her in the room 07/10, 07/11 Full code at this time and deserves further discussion Admission and Anticipated Discharge Date Admission Date: July 08, 2025 Subjective Overall doing quite well here Has been getting a bit agitated in the evenings, wanting to go home. Gets a dose of olanzapine ODT then sleeps well and no trouble rest of the night. Per family she is eating OK. Physical Exam Physical Exam: Last 24h vitals reviewed GEN:awake and sitting in bed, family in room exam unchanged 07/11: HEENT: pupils equal, sclerae anicteric, moist MM RESP: normal WOB, CTAB CV: reg no mrg ABD: soft/nt/nd +BT : no contreras SKIN: warm and dry, no generalized rashes NEURO: AOx person and family only. Confused and extremely poor short term memory. Face symmetric, speech normal, moves 4 ext spontaneously and equally. Calm no agitation Results & Data Results & Data Vital Signs (Past 12 Hours) Vital Signs Temp Pulse Resp BP Pulse Ox O2 Del Method 07/11/25 15:18 36.3 C L 70 18 165/85 H 100 Room Air 07/11/25 07:30 36.5 C 68 18 141/93 H 96 Room Air PG Care Time/CCT Total # of Minutes Spent Total Time Spent with Patient: Total time spent is greater than 50% in coordination of care (as documented) at patient's floor/unit and/or counseling patient: Coding Level of Care Code 73116 SUB INP/OBS CARE 2/35MIN Diagnoses Mixed dementia G30.9; F01.50; F02.80 Acquired hypothyroidism E03.9 Hypothyroidism type: acquired Sjogren's syndrome, with unspecified organ involvement M35.00 Sjogren organ or system involvement: unspecified organ involvement (2) Hypothyroidism Hypothyroidism type: acquired Qualified Code(s): E03.9 - Hypothyroidism, unspecified (3) Sjogrens syndrome Sjogren organ or system involvement: unspecified organ involvement Qualified Code(s): M35.00 - Sjogren syndrome, unspecified
[2025-07-11 19:40] VITALS: TEMP 97.7
--- NOTE | 2025-07-12 07:58 | Discharge Summary ---
Discharge Summary Date of Service July 12, 2025 Principal Dx & Hospital Course #1 = Principal Diagnosis (1) Mixed dementia: (2) Hypothyroidism: (3) Sjogrens syndrome: Plan 74 y/o woman with longstanding mixed dementia, seronegative arthritis and Sjogren's on low dose prednisone, who was brought in by her with progressive confusion and episodes of agitation / combativeness. # AMS - slow progression consistent with natural history of Alzheimer's dementia, rather than acute issue -Thorough ED workup negative for acute issues as detailed above: CBC/CMP, trop, COVID, UA, head CT, CXR, EKG all unremarkable/negative. Afebrile, not tachycardic, not hypoxic, mildly hypertensive -possible mild dehydration and given 1L NS in ED -B12 >1000 and TSH wnl -medication side effects (namenda, rivastigmine) which could be aggravating the agitation/combativeness - hold these -probable depression and anxiety - see below # Alzheimer's dementia previous (fairly remote, prior to 2020) neuropsychological evaluation had sug gested a mixed dementia, and past MRI of the brain with chronic small vessel disease and bilateral hippocampal atrophy. Reviewed previous neurology clinic notes including Dr. Callahan's last note - he felt more of an Alzheimer's picture and that fits with the progressive decline At baseline incontinence bowel/bladder, cannot complete ADLs except can dress self 50% of the time, increasing behavioral problems making it difficult for her to care for her -on rivastigmine patch and namenda as outpatient - stop because risk of side effects exceeds benefit at this point -discussed natural history of dementia with her , son -ordered olanzapine 5 mg ODT HS scheduled - has been very effective for recurring pattern of evening agitation. May give early. Discussed risks:benefits with her son. 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 Eval for dose increase in roughly 10 days -QTC is not prolonged # hypothyroidism - TSH normal, continue levothyroxine # Sjogren's and seronegative arthritis -continue low dose prednisone 5 mg daily dc to rehab at [facility] tomorrow then to [facility] I updated son Willis and her in the room 07/10, 07/11. 07/12 Full code at this time by conversation with her and deserves further discussion Notes For Next Care Provider Progression of dementia, behavioral disturbance Medication Changes From Visit Stopped rivastigmine, namenda Started citalopram - eval for dose increase in 2 weeks Started HS olanzapine for nightly agitation/combativeness - DC if possible once acclimated to new living situation Admission HPI Per Admitting Provider 74 y/o with longstanding mixed dementia (onset prior to 2020), seronegative arthritis and Sjogren's on low dose prednisone, who was brought in by her with increasing confusion, combativeness. She can not provide any history because of severe dementia. History from ED physician and from her , by telephone, which was somewhat limited by soft speech and static on telephone line. She has had progressive slow decline over time, especially past weeks to months. She no longer cooks and he does not trust her with a knife because of inappropriate safety awareness. She is able to dress herself about 50% of the time. There have been increased episodes of agitation / combativeness recently where she will yell at him, argue, even throw objects at him. He relates a story where they were out for dinner and she had put all her rings in her mouth with tacos. She also wants to put two shoes on at the same time and agitated when he tries to redirect her. Recently they have been exploring moving to a [facility]ci home and she has been very sad about that, saying she'd rather and crying. He feels she does have depressed mood. [place] [facility] [place], on rivastigmine patch and namenda Multiple ED visits recently with complaints about urinary incontinence. No UTIs. noted to be slow to respond verbally but not confused. They live in a house in [place] and have two adult children that live in [facility] and [place]. Discharge Exam Last 24h vitals reviewed GEN:awake and sitting in bed, family in room exam unchanged 07/12: HEENT: pupils equal, sclerae anicteric, moist MM RESP: normal WOB, CTAB CV: reg no mrg ABD: soft/nt/nd +BT : no contreras SKIN: warm and dry, no generalized rashes NEURO: AOx person and family only. Confused and extremely poor short term memory. Face symmetric, speech normal, moves 4 ext spontaneously and equally. Calm no agitation Discharge Plan Discharge Items Patient Disposition: Transfer Jail Fac Reason For Visit: CONFUSION/LETHARGY Discharge Diagnosis: Mixed dementia with behavioral disturbance Condition on Discharge: Fair Activity: Resume your previous activity Non-emergency contact: Primary Care Provider Call non-emergency contact if: you have any medication questions and your symptoms worsen Follow-up/Referrals: Jeff Munoz III, CRNP [Primary Care Provider] - Diet: Regular Addtl Attending Provider Instructions: Stopped rivastigmine patch and namenda because of limited benefit at this point and may have been aggravating agitation/combativeness. Behaviors possibly have improved off these meds. Has had pattern of agitation early evening (7-8 pm) and responds well to olanzapine 5 mg ODT currently scheduled around that time. Once acclilmated in new setting, try to discontinue because of risk:benefit No other acute issues such as infection identified PT and OT evaluate and treat It was a pleasure taking care of Ema in the hospital, Tiffany Becerra MD Pending Studies at Discharge: No Stand-Alone Forms: My [facility] Skilled Items Patient informed of condition?: Yes DNR: No Discharge Level of Care: Skilled Communicable Disease: No Discharge Prognosis: Stable Lines: None Urinary Catheter: No Medications and DC Order Prescriptions: New acetaminophen 325 mg Tablet 650 mg PO Q4H PRNQty: 0 0RF polyethylene glycol 3350 [Miralax] 17 gram Powder In Packet 17 g PO DAILY PRNQty: 0 0RF olanzapine 5 mg Tablet,Disintegrating 5 mg PO Q24H Qty: 0 0RF Continued prednisone 5 mg tablet 5 mg PO QAM Qty: 90 3RF fenofibrate 150 mg capsule 150 mg PO QAM Qty: 90 3RF mecobalamin (vitamin B12) 1,000 mcg tablet,chewable 1,000 mcg PO DAILY Patient Comments: Unable to verify OTC meds at this date/time. 07/08/25 cholecalciferol (vitamin D3) [Vitamin D3] 1,000 unit Capsule 3,000 unit PO QDD Patient Comments: Unable to verify OTC meds at this date/time. 07/08/25 Nettie-3 Fish Oil 910-1,400 mg Capsule 1 cap PO QDD levothyroxine 50 mcg tablet 50 mcg PO DAILYBB Discontinued rivastigmine 9.5 mg/24 hour patch 24 hour 9.5 mg transdermal QAM 90 Days Qty: 3 3RF Rx Instructions: every 24 hours memantine 10 mg tablet 10 mg PO BID 90 Days Qty: 180 1RF terbinafine HCl 250 mg tablet 250 mg PO DAILY 84 Days Qty: 84 0RF Discharge Orders: Discharge Order (Routine); Ordered 07/12/25 Ordered By: Tiffany Becerra Admission Data Admit Date/Time: 07/08/25 13:12 Attending Provider: Tiffany Becerra Admit Provider: Tiffany Becerra Primary Care Provider: Jeff Munoz III Other Providers: Marshall Stanford; Anika Conrad [facility] Other Interventions: Discharge Summary Assessment (RN) Last Done: 07/12/25 11:01 Hospital Stay Data Consultations 07/08/25 10:58 ED Decision to Admit Stat Diagnostic Imagining Performed 07/08/25 08:52 CT head/brain wo con Stat Pending Results Patient Have Any Pending Studies at Discharge: No Discharge Instructions Given to Patient (Per Discharging Provider) Stopped rivastigmine patch and namenda because of limited benefit at this point and may have been aggravating agitation/combativeness. Behaviors possibly have improved off these meds. Has had pattern of agitation early evening (7-8 pm) and responds well to olanzapine 5 mg ODT currently scheduled around that time. Once acclilmated in new setting, try to discontinue because of risk:benefit No other acute issues such as infection identified PT and OT evaluate and treat It was a pleasure taking care of Ema in the hospital, Tiffany Becerra MD Total Time Total Time Spent Total Time Spent (In Minutes): I personally spent: 40 minutes today on clinical care activities including: reviewing chart notes and vital signs discussion with clinical care manager examining and counseling the patient counseling the patient's family writing orders writing prescriptions, discharge instructions documentation Coding Level of Care Code 94833 INP/OBS DISCH >30 MIN Diagnoses Mixed dementia G30.9; F01.50; F02.80 Acquired hypothyroidism E03.9 Hypothyroidism type: acquired Sjogren's syndrome, with unspecified organ involvement M35.00 Sjogren organ or system involvement: unspecified organ involvement
[2025-07-12 08:50] VITALS: BP 166/87; PULSE 64; O2SAT 100
== END 2025-07-12 14:14 | DRG 57 ==
LOC: SUATTDRO → ED 08:33 → 3N 11:47 → INTOOBSV 11:47 → 3N 15:14